=== PATIENT | female | born 1980 | race Caucasian/White ===

== ENCOUNTER 2017-07-05 20:22 | Emergency (ER) | payer OTHER ==
[~2017-07-05] VITALS: Ht 154.9 cm; Wt 63.0 kg
[~2017-07-05 20:22] MED LIST: ALBU8.5H3 INH; CYCL-319 PO; HYDR-2086 PO; HYDR-3498 PO; IBUP-1542 PO; MONT10TA21 PO; OXYC-283 PO
[2017-07-05 20:31] VITALS: Ht 154.9 cm; Wt 63.0 kg
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
[2017-07-06] MEDS ORDERED: IBUP400T22 PO (02:19)
[2017-07-06] MEDS ORDERED: HYDR-906 PO (02:19)
[2017-07-06] MEDS ORDERED: CYCL-319 PO (02:19)
== END 2017-07-06 02:26 | disposition home or self-care (01) ==
LOC: FTE 20:22
DX: S16.1XXA Strain of muscle, fascia and tendon at neck level, initial encounter (principal); S39.012A Strain of muscle, fascia and tendon of lower back, initial encounter; S00.93XA Contusion of unspecified part of head, initial encounter; J45.909 Unspecified asthma, uncomplicated; R51 Headache; V49.40XA Driver injured in collision with unspecified motor vehicles in traffic accident, initial encounter
CPT/HCPCS: 70450; 72125; 72128; Z7502

== ENCOUNTER 2018-08-06 16:33 | Emergency (ER) | END 2018-08-06 18:00 | disposition home or self-care (01) ==